=== PATIENT | male | born 2000 ===

== ENCOUNTER → 2020-11-07 08:00 | Outpatient (CLI) | payer OTHER | END | disposition home or self-care (01) | LOC: LAB 08:00 → ADM 12:45 → AMB-ENDOS 11-09 12:45 → EDSTATUS 11-09 12:45 | PROVIDERS: ATTEND Colon & Rectal Surgery | DX: K62.5 Hemorrhage of anus and rectum (principal); R19.4 Change in bowel habit; Z12.11 Encounter for screening for malignant neoplasm of colon; Z12.12 Encounter for screening for malignant neoplasm of rectum ==